=== PATIENT | female | born 1975 | race Asian ===

== ENCOUNTER 2019-03-01 15:02 | Emergency (ER) | payer MEDICAID ==
[~2019-03-01] VITALS: Ht 149.9 cm; Wt 45.5 kg
[2019-03-01 15:05] VITALS: BP 133/104
[2019-03-01] MEDS ORDERED: DEXAMETHASONE SOD PHOS 4 MG/ML 5 ML VIAL IM ONE (16:00)
== END 2019-03-01 16:10 | disposition home or self-care (01) ==
LOC: EMS 15:02
DX: L30.9 Dermatitis, unspecified (principal); E03.9 Hypothyroidism, unspecified; F17.210 Nicotine dependence, cigarettes, uncomplicated; F12.90 Cannabis use, unspecified, uncomplicated
CPT/HCPCS: 96372; 99283; J1100

== ENCOUNTER 2019-04-14 13:47 | Emergency (ER) | payer MEDICAID ==
[~2019-04-14] VITALS: Ht 149.9 cm; Wt 45.5 kg
[2019-04-14] MEDS ORDERED: HYDROCORTISONE 2.5% 30 GM CREAM TP ONE (15:00)
[2019-04-14] MEDS ORDERED: MINERAL OIL/PETROLATUM 120 GM CREAM TP ONE (15:00)
[2019-04-14 15:27] VITALS: BP 128/90
== END 2019-04-14 15:43 | disposition home or self-care (01) ==
LOC: EMS 13:53
DX: L30.9 Dermatitis, unspecified (principal); E03.9 Hypothyroidism, unspecified; F17.210 Nicotine dependence, cigarettes, uncomplicated; F12.90 Cannabis use, unspecified, uncomplicated; Z98.890 Other specified postprocedural states
CPT/HCPCS: 99406

== ENCOUNTER 2019-10-01 10:45 | Emergency (ER) | payer MEDICAID ==
[~2019-10-01] VITALS: Ht 149.9 cm; Wt 45.5 kg
[2019-10-01] MEDS ORDERED: SODIUM CHLORIDE 0.9% 1,000 ML IV ONE (11:10)
[2019-10-01] MEDS ORDERED: DiphenhydrAMINE HCL 50 MG/ML VIAL IVP ONE (11:15)
[2019-10-01] MEDS ORDERED: MethylPREDNISolone SOD SUCC 125 MG/2 ML VIAL IVP ONE (11:15)
[2019-10-01] MEDS ORDERED: RANITIDINE HCL 25 MG/ML 2 ML VIAL IVP ONE (11:15)
[2019-10-01] MEDS ORDERED: MethylPREDNISolone SOD SUCC 125 MG/2 ML VIAL IM ONE (12:15)
[2019-10-01] MEDS ORDERED: DiphenhydrAMINE HCL 50 MG/ML VIAL IM ONE (12:15)
[2019-10-01] MEDS ORDERED: RANITIDINE HCL 150 MG TABLET PO ONE (12:15)
[2019-10-01 15:00] VITALS: BP 122/70
== END 2019-10-01 15:00 | disposition home or self-care (01) ==
LOC: EMS 10:45
DX: L25.9 Unspecified contact dermatitis, unspecified cause (principal); E03.9 Hypothyroidism, unspecified; F17.210 Nicotine dependence, cigarettes, uncomplicated; F12.90 Cannabis use, unspecified, uncomplicated; Z98.890 Other specified postprocedural states
CPT/HCPCS: 96372; 99283; J1200; J2930; J7030; J2780